=== PATIENT | male | born 1990 | race Caucasian/White ===

== ENCOUNTER 2016-06-20 12:54 | Outpatient (CLI) | payer OTHER | END 2016-06-20 12:55 | disposition home or self-care (01) | DX: F41.8 Other specified anxiety disorders (principal); E55.9 Vitamin D deficiency, unspecified ==

== ENCOUNTER 2017-09-30 08:00 | Outpatient (CLI) | payer OTHER | END 2017-09-30 08:01 | disposition home or self-care (01) | LOC: LAB.F 08:00 | PROVIDERS: ATTEND Physician Assistant Medical | DX: E55.9 Vitamin D deficiency, unspecified (principal) | CPT/HCPCS: 36415; 82306 ==

== ENCOUNTER 2020-02-21 14:00 | Outpatient (CLI) | payer OTHER | END 2020-02-21 14:01 | disposition home or self-care (01) | LOC: COV 14:00 | PROVIDERS: ATTEND Family Medicine | DX: R05 Cough (principal); R09.81 Nasal congestion; Z20.828 Contact with and (suspected) exposure to other viral communicable diseases ==

== ENCOUNTER 2020-04-17 12:14 | Outpatient (CLI) | payer OTHER | END 2020-04-17 12:15 | disposition critical access hospital (66) | LOC: EMS 12:14 | PROVIDERS: ATTEND Surgery | DX: R10.9 Unspecified abdominal pain (principal) | CPT/HCPCS: A0425; A0427 ==

== ENCOUNTER 2020-04-17 12:34 | Emergency (ER) | payer OTHER ==
[2020-04-17] MEDS ORDERED: KETOROLAC 30 MG/ML VIAL IVP STA (12:46)
[2020-04-17] MEDS ORDERED: SODIUM CHLORIDE 0.9% 1,000 ML IV STA (12:46)
[2020-04-17 13:03] LABS: BASOPHILS % (AUTO) 0.3 %; EOSINOPHILS # (AUTO) 0.1 10^3/uL (0.0-0.7); HGB - HEMOGLOBIN 14.2 g/dL (14.0-18.0); LYMPHOCYTES # (AUTO) 2.4 10^3/uL (1.5-3.5); LYMPHOCYTES % (AUTO) 39.7 %; MEAN CORPUSCULAR HEMOGLOBIN 28.6 pg (27.0-31.0); MEAN CORPUSCULAR HGB CONC 33.1 g/dL (32.0-36.0); MEAN CORPUSCULAR VOLUME 86.3 fL (80.0-94.0); MONOCYTES # (AUTO) 0.4 10^3/uL (0.0-1.0); MONOCYTES % (AUTO) 7.2 %; NEUTROPHILS # (AUTO) 3.2 10^3/uL (1.5-6.6); NEUTROPHILS % (AUTO) 51.6 %; PLT - PLATELET COUNT 219 10^3/uL (130-450); RED BLOOD COUNT 4.97 10^6/uL (4.70-6.10); RED CELL DISTRIBUTION WIDTH 12.5 % (12.0-15.0); WHITE BLOOD COUNT 6.1 x10^3/uL (4.8-10.8)
[2020-04-17 13:16] LABS: ALBUMIN 4.2 g/dL (3.2-5.5); ALBUMIN/GLOBULIN RATIO 1.2 (1.0-2.2); BILIRUBIN,TOTAL 0.4 mg/dL (0.2-1.0); TOTAL PROTEIN 7.7 g/dL (6.7-8.2)
--- NOTE | 2020-04-17 13:30 | CT Report ---
PROCEDURE: Abdomen/Pelvis WO INDICATIONS: L flank pain TECHNIQUE: Noncontrast 5 mm thick sections acquired from the diaphragms to the symphysis. 5 mm coronal and sagi ttal reformats were then performed. For radiation dose reduction, the following was used: automated exposure control, adjustment of mA and/or kV according to patient size. COMPARISON: None. FINDINGS: Image quality: Excellent. ABDOMEN: Lung bases: Lung bases are clear. Heart size is normal. Solid organs: Liver and spleen are normal in size. Gallbladder is unremarkable Pancreas is normal in contours. No adrenal nodules. Kidneys are normal in size, without hydronephrosis or nephrolithia sis. Peritoneum and bowel: Unenhanced bowel loops demonstrate normal wall thickness and caliber. No free fluid or air. There is mild, diffuse mesenteric stranding with associated reactive lymph nodes with in the upper and left upper abdomen. Nodes and vessels: No retroperitoneal or mesenteric adenopathy by size criteria. Aorta and inferior vena cava are normal in caliber. Miscellaneous: No ventral hernias. Tiny fat-containing umbilical hernia without acute inflammation. PELVIS: Genitourinary: Bladder wall thickness is normal. Miscellaneous: No inguinal hernias or adenopathy. Bones: No suspicious bony lesions. No vertebral body compression fractures. IMPRESSION: 1. Mild diffuse mesenteric stranding involving the upper midline and upper left abdomen with associat ed reactive mesenteric lymph nodes is nonspecific and likely related to mesenteritis. Etiologies may include an infectious/inflammatory process to include inflammatory pseudotumor. Neoplastic process jang ch as retroperitoneal or mesenteric lymphoma, carcinoid tumor, or fibromatosis not excluded if clinic ally appropriate. Consider follow-up imaging after resolution of acute findings. 2. Otherwise, no acute abnormalities identified in the abdomen or pelvis. Normal appendix. No evidenc e for urolithiasis or obstructive uropathy. Reviewed by: Ivan Meadows MD on 04/17/2020 1:29 PM PST Approved by: Ivan Meadows MD on 04/17/2020 1:29 PM PST Station ID: [id number]
--- NOTE | 2020-04-17 13:58 | ED Physician Documentation ---
PD HPI ABD PAIN - Stated complaint Stated Complaint: FLANK PX - Chief complaint Chief Complaint: Abd Pain - History obtained from History obtained from: Patient - History of Present Illness Timing - onset: Enter time (1114), Today Timing - duration: Minutes Timing - details: Abrupt onset, Still present Quality: Sharp, Pain Location: LUQ Radiation: Left flank Improved by: Meds Worsened by: Other (nothing) Associated symptoms: No: Fever, Nausea, Vomiting, Hematemesis Similar symptoms before: Diagnosis (kidney stone) Recently seen: Not recently seen - Additional information Additional information: 29-year-old male with a prior history of kidney stone had acute onset of left flank pain severe and without modifying factors. He did call the ambulance in route he received some fentanyl and felt improved. Review of Systems Constitutional: denies: Fever Eyes: denies: Decreased vision Ears: denies: Ear pain Nose: denies: Congestion Throat: denies: Sore throat Cardiac: denies: Chest pain / pressure, Palpitations Respiratory: denies: Dyspnea, Cough GI: reports: Abdominal Pain. denies: Nausea, Vomiting : denies: Dysuria, Frequency PD PAST MEDICAL HISTORY - Past Medical History Cardiovascular: None Respiratory: None Neuro: None Endocrine/Autoimmune: None GI: None : Kidney stones HEENT: None Psych: Depression Musculoskeletal: None Derm: None - Past Surgical History Past Surgical History: No - Present Medications Home Medications: Ambulatory Orders Medication Instructions Recorded Confirmed traMADol [Ultram] 50 - 100 mg PO Q6H PRN #20 tablet 04/17/20 - Allergies Allergies/Adverse Reactions: Allergies Allergy/AdvReac Type Severity Reaction Status Date / Time No Known Drug Allergies Allergy Verified 04/17/20 12:46 - Social History Does the pt smoke?: No Smoking Status: Never smoker Does the pt drink ETOH?: No Does the pt have substance abuse?: No - Immunizations Immunizations are current?: Yes PD ED PE NORMAL - Vitals Vital signs reviewed: Yes (hypertensive ) - General General: Alert and oriented X 3, No acute distress, Well developed/nourished - HEENT HEENT: Atraumatic, PERRL, EOMI - Neck Neck: Supple, no meningeal sign, No bony TTP - Cardiac Cardiac: RRR, No murmur - Respiratory Respiratory: No respiratory distress, Clear bilaterally - Abdomen Abdomen: Normal bowel sounds, Soft, Non tender, Non distended, No organomegaly - Back Back: No CVA TTP, No spinal TTP - Derm Derm: Normal color, Warm and dry, No rash - Extremities Extremities: No deformity, No edema - Neuro Neuro: Alert and oriented X 3, lockstitch sleeve setter 2-12 intact, No motor deficit, No sensory deficit, Normal speech Eye Opening: Spontaneous Motor: Obeys Commands Verbal: Oriented GCS Score: 15 - Psych Psych: Normal mood, Normal affect Results - Vitals Vitals: Vital Signs - 24 hr 04/17/20 04/17/20 04/17/20 12:42 12:53 14:45 Temperature 36.6 C Heart Rate 94 83 88 Respiratory 16 16 16 Rate Blood Pressure 150/78 H 134/77 H 124/68 O2 Saturation 98 98 99 Oxygen O2 Source Room air - Labs Labs: Laboratory Tests 04/17/20 04/17/20 04/17/20 12:46 12:46 13:24 WBC 6.1 RBC 4.97 Hgb 14.2 Hct 42.9 MCV 86.3 MCH 28.6 MCHC 33.1 RDW 12.5 Plt Count 219 MPV 10.0 Neut # (Auto) 3.2 Lymph # (Auto) 2.4 [place] # (Auto) 0.4 Eos # (Auto) 0.1 Baso # (Auto) 0.0 Absolute Nucleated RBC 0.00 Nucleated RBC % 0.0 Sodium 139 Potassium 3.4 L Chloride 103 Carbon Dioxide 24 Anion Gap 12.0 BUN 17 Creatinine 1.0 Estimated GFR (MDRD) 90 Glucose 135 H Calcium 9.0 Total Bilirubin 0.4 AST 20 ALT 21 Alkaline Phosphatase 69 Total Protein 7.7 Albumin 4.2 Globulin 3.5 Albumin/Globulin Ratio 1.2 Lipase 25 Urine Color YELLOW Urine Clarity CLEAR Urine pH 6.0 Ur Specific [place] 1.025 Urine Protein NEGATIVE Urine Glucose (UA) NEGATIVE Urine Ketones NEGATIVE Urine Occult Blood NEGATIVE Urine Nitrite NEGATIVE Urine Bilirubin NEGATIVE Urine Urobilinogen 0.2 (NORMAL) Ur Leukocyte Esterase NEGATIVE Ur Microscopic Review NOT INDICATED Urine Culture Comments NOT INDICATED - Rads (name of study) CT ab/pel Radiology: Prelim report reviewed (Impression: 1. Mild diffuse mesenteric stranding involving the upper midline and upper left abdomen with associated reactive mesenteric lymph nodes is nonspecific and likely related to mesenteric- itis. Etiology may include infectious/inflammatory processes to include inflammatory pseudotumor.), Final report received (Neoplastic process such as retroperitoneal or mesenteric lymphoma, carcinoid tumor, or fibromatosis not excluded if clinically appropriate. Consider follow-up imaging after resolution of acute findings. Otherwise, no acute abnormalities identified in the abdomen or pelvis. Normal appendix. ), EMP read indepedently, See rad report (No evidence for urolithiasis or obstructive uropathy.) Procedures - Bedside sono Bedside sono by EMP: With bedside ultrasound the kidneys are imaged bilaterally there is slightly more hydro visible on the left than the right. Both are not hydronephrosis. PD MEDICAL DECISION MAKING - ED course Complexity details: reviewed old records, reviewed results, re-evaluated patient, considered differential, d/w patient ED course: 29 y/o male with acute flank pain has improvement with toradal. No evidence of stone on CT but evidence of mesenteritis. Departure - Departure Disposition: 01 Home, Self Care Clinical Impression: Mesenteric lymphadenitis Condition: Stable Instructions: ED Adenitis Mesenteric Follow-Up: Westley Renteria MD [Provider Admit Priv/Credential] - Prescriptions: traMADol [Ultram] 50 - 100 mg PO Q6H PRN #20 tablet PRN Reason: Pain Discharge Date/Time: 04/17/20 14:55
[2020-04-17 14:08] LABS: BILIRUBIN,URINE NEGATIVE (NEGATIVE); GLUCOSE, URINE (UA) NEGATIVE (NEGATIVE); KETONES,URINE (UA) NEGATIVE (NEGATIVE); LEUKOCYTE ESTERASE, URINE NEGATIVE (NEGATIVE); NITRITE,URINE NEGATIVE (NEGATIVE); OCCULT BLOOD,URINE NEGATIVE (NEGATIVE); PROTEIN,URINE NEGATIVE (NEGATIVE); UROBILINOGEN,URINE 0.2 (NORMAL) E.U./dL (NORMAL)
[2020-04-17 14:09] LABS: CLARITY,URINE CLEAR (CLEAR)
[2020-04-17] MEDS ORDERED: DEXAMETHASONE 10 MG/ML VIAL IVP STA (14:10)
[2020-04-17 14:59] VITALS: BP 124/68
== END 2020-04-17 14:55 | disposition home or self-care (01) ==
LOC: EDUNIT# → ED 12:34
DX: I88.0 Nonspecific mesenteric lymphadenitis (principal)
CPT/HCPCS: 36415; 74176; 80053; 81001; 81003; 83690; 85025; 87086; 96374; 96375; 99284